=== PATIENT | male | born 1965 | race Caucasian/White ===

== ENCOUNTER 2016-06-26 23:50 | Emergency (ER) | payer OTHER ==
[~2016-06-26] VITALS: Ht 177.8 cm; Wt 80.0 kg
[2016-06-26 23:53] VITALS: PULSE 101; RESP 25; TEMP 98.4; O2SAT 90
[2016-06-26] MEDS ORDERED: SODIUM CHLOR 0.9% 1000 ML INJ 1,000 ML IV SCH (23:54)
[2016-06-27] MEDS ORDERED: PROMETHAZINE INJ 25 MG/ML VIAL IM ONE
[2016-06-27] MEDS ORDERED: HYDROmorphone HCL PF 1 MG/ML VIAL IVS ONE
[2016-06-27] MEDS ORDERED: SODIUM CHLORIDE 0.9% FLUSH 5 ML FLUSH IVF PRN
[2016-06-27 00:02] VITALS: BP 118/73; PULSE 104; RESP 25; O2SAT 93
[2016-06-27] MEDS ORDERED: IOHEXOL 350 MG/ML 10 ML VIAL (for RAD DIAG) IV ONE (00:11)
--- NOTE | 2016-06-27 00:28 | RADRPT ---
EXAM DATE/TIME: 06/27/2016 00:11 [facility] COMPARISON: CT THORAX W CONTRAST, June 27, 2016, 0:11. INDICATIONS : Trauma; fall. IV CONTRAST: 97 cc Omnipaque 350 (iohexol) IV ; Cumulative dose for multiple exams. ORAL CONTRAST: No oral contrast ingested. RADIATION DOSE: 21.54 CTDIvol (mGy) ; Combined studies - Thorax/Abdomen/Pelvis MEDICAL HISTORY : None SURGICAL HISTORY : None. ENCOUNTER: Initial ACUITY: 1 day PAIN SCALE: 7/10 LOCATION: Right upper quadrant abdomen TECHNIQUE: Volumetric scanning of the abdomen and pelvis was performed. Using automated exposure control and ad justment of the mA and/or kV according to patient size, radiation dose was kept as low as reasonably achievable to obtain optimal diagnostic quality images. FINDINGS: LOWER LUNGS: The visualized lower lungs are clear. LIVER: Homogeneous density without lesion. There is no dilation of the biliary tree. No calcified gallston es. SPLEEN: Normal size without lesion. PANCREAS: Within normal limits. KIDNEYS: Normal in size and shape. There is no mass, stone or hydronephrosis. ADRENAL GLANDS: Within normal limits. VASCULAR: There is no aortic aneurysm. BOWEL/MESENTERY: The stomach, small bowel, and colon demonstrate no acute abnormality. There is no free intraperitone al air or fluid. ABDOMINAL WALL: Right inguinal hernia containing fat.. RETROPERITONEUM: There is no lymphadenopathy. BLADDER: No wall thickening or mass. REPRODUCTIVE: Within normal limits. INGUINAL: There is no lymphadenopathy or hernia. MUSCULOSKELETAL: Within normal limits for patient age. CONCLUSION: 1. Fat containing right inguinal hernia. 2. No acute findings. James Hackett MD on June 27, 2016 at 0:25 Board Certified Radiologist. This report was verified electronically.
--- NOTE | 2016-06-27 00:29 | RADRPT ---
EXAM DATE/TIME: 06/27/2016 00:11 [facility] COMPARISON: CT ABDOMEN & PELVIS W CONTRAST, June 27, 2016, 0:11. INDICATIONS : Trauma; fall. IV CONTRAST: 97 cc Omnipaque 350 (iohexol) IV ; Cumulative dose for multiple exams. RADIATION DOSE: 21.54 CTDIvol (mGy) ; Combined studies - Thorax/Abdomen/Pelvis MEDICAL HISTORY : None SURGICAL HISTORY : None. ENCOUNTER: Initial ACUITY: 1 day PAIN SCALE: 7/10 LOCATION: Right chest TECHNIQUE: Volumetric scanning of the chest was performed. Using automated exposure control and adjustment of t he mA and/or kV according to patient size, radiation dose was kept as low as reasonably achievable to obtain optimal diagnostic quality images. FINDINGS: LUNGS: There is no consolidation or pneumothorax. No concerning pulmonary nodule is visualized. PLEURA: There is no pleural thickening or pleural effusion. MEDIASTINUM: The heart and great vessels demonstrate no acute abnormality. There is no mediastinal or hilar lymph adenopathy. AXILLAE: Within normal limits. No lymphadenopathy. SKELETAL: Within normal limits for patient age. MISCELLANEOUS: The visualized upper abdominal organs demonstrate no acute abnormality. CONCLUSION: No acute disease. James Hackett MD on June 27, 2016 at 0:26 Board Certified Radiologist. This report was verified electronically.
[2016-06-27 00:34] VITALS: BP 118/73; PULSE 106; RESP 18; O2SAT 94
[2016-06-27 00:41] LABS: AUTOMATED NEUTROPHIL # 3.8 TH/MM3 (1.8-7.7); BASOPHIL # 0.1 TH/MM3 (0-0.2); BASOPHIL % 0.7 % (0.0-2.0); EOSINOPHIL # 0.3 TH/MM3 (0-0.4); EOSINOPHIL % 3.5 % (0.0-4.0); HEMATOCRIT 44.1 % (39.0-51.0); HEMO FLAGS DIFF FINAL; LYMPH % 40.6 % (9.0-44.0); LYMPHOCYTE # 3.3 TH/MM3 (1.0-4.8); MEAN CELL VOLUME 90.8 FL (80.0-100.0); MEAN CORPUSCULAR HEMOGLOBIN 30.3 PG (27.0-34.0); MEAN CORPUSCULAR HGB CONC 33.4 % (32.0-36.0); MONO % 8.7 % (0.0-8.0); NEUT % 46.5 % (16.0-70.0); PLATELET COUNT 207 TH/MM3 (150-450); RED BLOOD COUNT 4.86 MIL/MM3 (4.50-5.90); RED CELL DISTRIBUTION WIDTH 13.5 % (11.6-17.2); WHITE BLOOD COUNT 8.1 TH/MM3 (4.0-11.0)
[2016-06-27 00:57] LABS: ALKALINE PHOSPHATASE 91 U/L (45-117); TOTAL BILIRUBIN ADULT 0.3 MG/DL (0.2-1.0)
[2016-06-27 01:00] LABS: ALT (GPT) 54 U/L (12-78); ANION GAP 12 MEQ/L (5-15); AST (GOT) 39 U/L (15-37); BICARBONATE 22.7 MEQ/L (21.0-32.0); BLOOD UREA NITROGEN 17 MG/DL (7-18); CHLORIDE 106 MEQ/L (98-107); GLOMERULAR FILTRATION RATE 68 ML/MIN (>89); POTASSIUM 3.9 MEQ/L (3.5-5.1); SODIUM (NA) 141 MEQ/L (136-145)
--- NOTE | 2016-06-27 01:41 | PD ---
HPI Chief Complaint: Fall Time Seen by Provider: 23:54 Travel History International Travel<30 days: No Contact w/Intl Traveler<30days: No Traveled to known affect area: No History of Present Illness HPI 50-year-old male arrives by EMS. He was drinking alcohol tonight. He experienced a fall evidently while exercising on his back yard. He fell onto a grass sprinkler landing on the region of the right flank. He complains of constant pain severe in that area. It's worse with range of motion and palpation. No loss of consciousness occurred. No neurologic deficit was observed. EMS gave morphine and Zofran in route which conferred no benefit. PFSH Past Medical History Medical History: Denies Significant Hx Tetanus Vaccination: > 5 Years Influenza Vaccination: No Past Surgical History Appendectomy: Yes Social History Alcohol Use: Yes Tobacco Use: Yes Substance Use: No Allergies-Medications (Allergen,Severity, Reaction): Coded Allergies: No Known Allergies (Unverified , 06/26/16) Reported Meds & Prescriptions Reported Meds & Active Scripts Active No Active Prescriptions or Reported Medications Review of Systems ROS Limitations: Clinical Condition Physical Exam Narrative GENERAL: 50-year-old male well-nourished well-developed moderate distress secondary to pain SKIN: Warm and dry. Abrasions about the region of the right flank/right lower chest wall posteriorly. HEAD: Atraumatic. Normocephalic. EYES: Pupils equal and round. No scleral icterus. No injection or drainage. ENT: No nasal bleeding or discharge. Mucous membranes pink and moist. NECK: Trachea midline. No JVD. CARDIOVASCULAR: Regular rate and rhythm. No murmur appreciated. RESPIRATORY: Uncooperative with exam. No obvious dyspnea. GASTROINTESTINAL: Uncooperative with exam. MUSCULOSKELETAL: No obvious deformities. No clubbing. No cyanosis. No edema. NEUROLOGICAL: Awake and alert. No obvious cranial nerve deficits. Motor grossly within normal limits. Normal speech. PSYCHIATRIC: EtOH on breath. Generally uncooperative with exam Data Data Last Documented VS Vital Signs Date Time Temp Pulse Resp B/P Pulse Ox O2 Delivery O2 Flow Rate FiO2 06/27/16 00:34 106 18 118/73 94 Nasal Cannula 3 06/26/16 23:53 98.4 Orders Complete Blood Count With Diff (06/26/16 23:54) Comprehensive Metabolic Panel (06/26/16 23:54) Urinalysis - C+S If Indicated (06/26/16 23:54) Iv Access Insert/Monitor (06/26/16 23:54) Ecg Monitoring (06/26/16 23:54) Oximetry (06/26/16 23:54) Sodium Chlor 0.9% 1000 Ml Inj (Ns 1000 M (06/26/16 23:54) Sodium Chloride 0.9% Flush (Ns Flush) (06/27/16 00:00) Hydromorphone Pf Inj (Dilaudid Pf Inj) (06/27/16 00:00) Promethazine Inj (Phenergan Inj) (06/27/16 00:00) Alcohol (Ethanol) (06/26/16 23:54) Drug Screen, Random Urine (06/26/16 23:54) Ct Thorax/ Chest W Iv Contrast (06/26/16 23:56) Ct Abd/Pel W Iv Contrast(Rout) (06/26/16 23:56) Iohexol 350 Inj (Omnipaque 350 Inj) (06/27/16 00:11) Labs Laboratory Tests Test 06/27/16 00:25 White Blood Count 8.1 TH/MM3 Red Blood Count 4.86 MIL/MM3 Hemoglobin 14.7 GM/DL Hematocrit 44.1 % Mean Corpuscular Volume 90.8 FL Mean Corpuscular Hemoglobin 30.3 PG Mean Corpuscular Hemoglobin 33.4 % Concent Red Cell Distribution Width 13.5 % Platelet Count 207 TH/MM3 Mean Platelet Volume 9.3 FL Neutrophils (%) (Auto) 46.5 % Lymphocytes (%) (Auto) 40.6 % Monocytes (%) (Auto) 8.7 % Eosinophils (%) (Auto) 3.5 % Basophils (%) (Auto) 0.7 % Neutrophils # (Auto) 3.8 TH/MM3 Lymphocytes # (Auto) 3.3 TH/MM3 Monocytes # (Auto) 0.7 TH/MM3 Eosinophils # (Auto) 0.3 TH/MM3 Basophils # (Auto) 0.1 TH/MM3 CBC Comment DIFF FINAL Differential Comment Sodium Level 141 MEQ/L Potassium Level 3.9 MEQ/L Chloride Level 106 MEQ/L Carbon Dioxide Level 22.7 MEQ/L Anion Gap 12 MEQ/L Blood Urea Nitrogen 17 MG/DL Creatinine 1.14 MG/DL Estimat Glomerular Filtration 68 ML/MIN Rate Random Glucose 108 MG/DL Calcium Level 8.4 MG/DL Total Bilirubin 0.3 MG/DL Aspartate Amino Transf 39 U/L (AST/SGOT) Alanine Aminotransferase 54 U/L (ALT/SGPT) Alkaline Phosphatase 91 U/L Total Protein 8.2 GM/DL Albumin 4.4 GM/DL Ethyl Alcohol Level 258 MG/DL MDM Medical Decision Making Medical Screen Exam Complete: Yes Emergency Medical Condition: Yes Medical Record Reviewed: Yes Differential Diagnosis AL, intraperitoneal injury, retroperitoneal injury Narrative Course CBC & BMP Diagram 06/27/16 00:25 LFTs normal Alcohol 258 CT ab/pelvis: No acute findings CT thorax: No sign trauma Pt ready for discharge. Diagnosis Primary Impression: Alcohol intoxication Qualified Code: F10.129 - Alcohol intoxication, with unspecified complication Additional Impression: Contusion Referrals: Primary Care Physician 2 days Additional Instructions: You have a choice when it comes to health care, and we are glad that you chose [facility]. Hopefully, we have met your expectations on today's visit. You are welcome to return to [facility] at any time, as we are committed to meeting the health care needs of our community. Med/Other Pt SpecificInfo: No Change to Meds Scripts No Active Prescriptions or Reported Meds Disposition: DISCHARGE HOME Condition: Stable Gil Arita MD Jun 27, 2016 01:41
[2016-06-27 01:53] LABS: BLOOD, URINE SMALL (NEG); COMMENT (UR) CULT NOT INDICATED; CULTURE IF INDICATED CULT NOT INDICATED; GLUCOSE,URINE NEG (NEG); HYALINE CAST, URINE 1 /lpf (RARE); KETONE, URINE NEG (NEG); MUCUS URINE FEW /lpf (OCC); NITRITE,URINE NEG (NEG); SQUAMOUS EPITHELIAL CELL URINE <1 /hpf (0-5); URINE COLOR LIGHT-YELLOW (YELLW/STRAW)
[2016-06-27 01:54] LABS: AMPHETAMINE, URINE NEG (NEG); BARBITURATES, URINE NEG (NEG); COCAINE, URINE NEG (NEG)
[2016-06-27 02:19] VITALS: RESP 18
== END 2016-06-27 02:20 | disposition home or self-care (01) ==
LOC: NEPC 23:50
DX: S30.1XXA Contusion of abdominal wall, initial encounter (principal); S20.211A Contusion of right front wall of thorax, initial encounter; F10.129 Alcohol abuse with intoxication, unspecified; Z72.0 Tobacco use; W18.30XA Fall on same level, unspecified, initial encounter; Y93.B9 Activity, other involving muscle strengthening exercises; Y92.096 Garden or yard of other non-institutional residence as the place of occurrence of the external cause
CPT/HCPCS: 71260; 74177; 80053; 80307; 80320; 81001; 85025; 96361; 96372; 96374; 99284; J1170; J2550; J7030; Q9967